=== PATIENT | female | born 1985 | race Caucasian/White ===

== ENCOUNTER 2017-06-19 21:37 | Inpatient (IN) | payer OTHER ==
[~2017-06-19] VITALS: Ht 160 cm; Wt 67.1 kg
[2017-06-19 22:25] LABS: UA SPECIFIC GRAVITY 1.015 (1.005-1.035); microscopic required? YES; urine erythrocyte 1+ (NEGATIVE)
[2017-06-19 22:26] LABS: BASOPHIL % 0.3 % (0-2)
[2017-06-19 22:28] LABS: PLATELET COUNT 419 x10^3mcL (130-400); RED CELL DISTRIBUTION WIDTH 15.1 % (11.5-14.5)
[2017-06-19 22:32] LABS: CARBON DIOXIDE 20.8 mmol/L (21-32); CHLORIDE SERUM 108 mmol/L (98-107); CREATININE SERUM 0.8 mg/dL (0.6-1.0); GFR1 > 60 mL/min; GLUCOSE SERUM 115 mg/dL (74-106); POTASSIUM SERUM 3.4 mmol/L (3.5-5.1); SODIUM SERUM 143 mmol/L (136-145)
[2017-06-19 22:37] LABS: ALKALINE PHOSPHATASE 162 U/L (46-116); ALT/SGPT 53 U/L (14-59); AST/SGOT 32 U/L (15-37); BILIRUBIN TOTAL 0.56 mg/dL (0.20-1.00); TOTAL PROTEIN, SERUM 8.2 g/dL (6.4-8.2)
[2017-06-20 02:48] LABS: PHOSPHOROUS 2.6 mg/dL (2.5-4.9)
[2017-06-20 02:52] LABS: T3 TOTAL 1.26 ng/mL
[2017-06-20 03:00] LABS: FREE T4 1.13 ng/dL (0.76-1.46); FREE THYROXINE INDEX 4.1 ug/dL (1.4-4.5); T4(THYROXINE) 11.4 ug/dL (4.7-13.3)
[2017-06-20 03:15] VITALS: BP 106/78
[2017-06-20 04:08] LABS: CHOLESTEROL/HDL RATIO 4.8
[2017-06-20 05:36] VITALS: BP 119/74
[2017-06-20 08:43] LABS: BASOPHIL % 0.2 % (0-2); PLATELET COUNT 356 x10^3mcL (130-400)
[2017-06-20 09:20] LABS: CALCIUM 7.5 mg/dL (8.5-10.1); CARBON DIOXIDE 21.1 mmol/L (21-32); CHLORIDE SERUM 111 mmol/L (98-107); CREATININE SERUM 0.8 mg/dL (0.6-1.0); GFR1 > 60 mL/min; GLUCOSE SERUM 110 mg/dL (74-106); MAGNESIUM 1.7 mg/dL (1.8-2.4); PHOSPHOROUS 2.9 mg/dL (2.5-4.9); POTASSIUM SERUM 4.5 mmol/L (3.5-5.1); SODIUM SERUM 137 mmol/L (136-145)
[2017-06-20 09:21] LABS: RED CELL DISTRIBUTION WIDTH 15.2 % (11.5-14.5)
[2017-06-20 10:23] VITALS: BP 139/81
[2017-06-20 17:50] VITALS: BP 119/72
[2017-06-20 22:03] VITALS: BP 104/69
[2017-06-20 22:09] VITALS: BP 117/62
[2017-06-21 05:44] VITALS: BP 104/64
[2017-06-21 06:15] LABS: CALCIUM 7.9 mg/dL (8.5-10.1); CARBON DIOXIDE 22.9 mmol/L (21-32); CHLORIDE SERUM 112 mmol/L (98-107); CREATININE SERUM 0.6 mg/dL (0.6-1.0); GFR1 > 60 mL/min; GLUCOSE SERUM 100 mg/dL (74-106); PHOSPHOROUS 2.9 mg/dL (2.5-4.9); POTASSIUM SERUM 3.6 mmol/L (3.5-5.1); SODIUM SERUM 143 mmol/L (136-145)
[2017-06-21 06:36] LABS: BASOPHIL % 0.4 % (0-2); PLATELET COUNT 309 x10^3mcL (130-400)
[2017-06-21 06:38] LABS: RED CELL DISTRIBUTION WIDTH 15.7 % (11.5-14.5)
[2017-06-21 10:01] VITALS: BP 99/59
[2017-06-21 13:20] VITALS: BP 114/71
[2017-06-21 21:29] VITALS: BP 122/80
[2017-06-22 05:37] VITALS: BP 120/71
[2017-06-22] MEDS ORDERED: TYL325 PO (10:29)
[2017-06-22] MEDS ORDERED: FLO4 PO (10:29)
[2017-06-22] MEDS ORDERED: LAC PO (10:43)
[2017-06-22] MEDS ORDERED: LEVAQUIN750 MG PO (10:43)
[2017-06-22 10:48] VITALS: BP 121/84
[2017-06-22 11:21] VITALS: BP 121/84
[2017-06-22 15:07] VITALS: BP 153/93
== END 2017-06-22 15:53 | disposition home or self-care (01) | DRG 443 ==
LOC: ED 21:37 → DU 06-20 01:30
PROVIDERS: Emergency Medicine; Family Medicine; Radiology Diagnostic Radiology; ADMIT Family Medicine
PROC: 0T133JD Bypass Right Kidney Pelvis to Cutaneous with Synthetic Substitute, Percutaneous Approach (ICD-10-PCS; principal; 2017-06-20 13:00)
DX: N13.2 Hydronephrosis with renal and ureteral calculous obstruction (principal); N17.0 Acute kidney failure with tubular necrosis; K80.20 Calculus of gallbladder without cholecystitis without obstruction; E83.51 Hypocalcemia; E78.5 Hyperlipidemia, unspecified; N15.9 Renal tubulo-interstitial disease, unspecified; N12 Tubulo-interstitial nephritis, not specified as acute or chronic
CPT/HCPCS: 83880; 84439; C1729; C1769; C1884; J0696; J1170; J1885; J2001; J2250; J2270; J2405; J3010; J7030; J7040; Q0092; Q9967

== ENCOUNTER 2017-08-29 17:57 | Emergency (ER) | payer OTHER ==
[~2017-08-29] VITALS: Ht 160 cm; Wt 62.4 kg
[~2017-08-29 17:57] MED LIST: FLO4 PO; LAC PO; LEVAQUIN750 MG PO; TYL325 PO
[2017-08-29 20:35] LABS: BASOPHIL % 0.3 % (0-2); PLATELET COUNT 388 x10^3mcL (130-400); RED CELL DISTRIBUTION WIDTH 14.1 % (11.5-14.5)
[2017-08-29 20:41] LABS: UA SPECIFIC GRAVITY 1.025 (1.005-1.035); microscopic required? YES; urine erythrocyte 1+ (NEGATIVE)
[2017-08-29 20:46] LABS: CALCIUM 9.2 mg/dL (8.5-10.1); CARBON DIOXIDE 26.7 mmol/L (21-32); CHLORIDE SERUM 102 mmol/L (98-107); CREATININE SERUM 0.6 mg/dL (0.6-1.0); GFR1 > 60 mL/min; GLUCOSE SERUM 96 mg/dL (74-106); POTASSIUM SERUM 3.7 mmol/L (3.5-5.1); SODIUM SERUM 140 mmol/L (136-145)
[2017-08-29 20:50] LABS: ALBUMIN 4.5 g/dL (3.4-5.0); ALKALINE PHOSPHATASE 159 U/L (46-116); ALT/SGPT 55 U/L (14-59); AST/SGOT 24 U/L (15-37); BILIRUBIN TOTAL 0.5 mg/dL (0.20-1.00); LIPASE 243 IU/L (73-393)
[2017-08-29 20:52] LABS: TOTAL PROTEIN, SERUM 9.2 g/dL (6.4-8.2)
[2017-08-29 23:33] VITALS: BP 138/70
== END 2017-08-29 23:33 | disposition home or self-care (01) ==
LOC: ED 17:57
PROVIDERS: Emergency Medicine
DX: T83.022A Displacement of nephrostomy catheter, initial encounter (principal); N39.0 Urinary tract infection, site not specified
CPT/HCPCS: J0696; J2405; J7030

== ENCOUNTER 2017-12-01 10:38 | Emergency (ER) | payer OTHER ==
[~2017-12-01] VITALS: Ht 160 cm; Wt 62.6 kg
[2017-12-01 10:48] VITALS: Ht 160 cm; Wt 62.6 kg
[2017-12-01 11:58] LABS: RED CELL DISTRIBUTION WIDTH 12.9 % (11.5-14.5)
[2017-12-01 12:03] LABS: BASOPHIL % 2.3 % (0-2); PLATELET COUNT 428 x10^3mcL (130-400)
[2017-12-01 12:04] LABS: CALCIUM 8.4 mg/dL (8.5-10.1); CARBON DIOXIDE 24.5 mmol/L (21-32); CHLORIDE SERUM 105 mmol/L (98-107); CREATININE SERUM 0.6 mg/dL (0.6-1.0); GFR1 > 60 mL/min; GLUCOSE SERUM 88 mg/dL (74-106); POTASSIUM SERUM 3.9 mmol/L (3.5-5.1); SODIUM SERUM 140 mmol/L (136-145)
[2017-12-01 12:17] LABS: ALBUMIN 3.9 g/dL (3.4-5.0); ALKALINE PHOSPHATASE 146 U/L (46-116); ALT/SGPT 40 U/L (14-59); AST/SGOT 19 U/L (15-37); BILIRUBIN TOTAL 0.6 mg/dL (0.20-1.00); T4(THYROXINE) 7.9 ug/dL (4.7-13.3)
[2017-12-01 14:36] VITALS: BP 132/74
== END 2017-12-01 14:36 | disposition home or self-care (01) ==
LOC: ED 10:38
PROVIDERS: Emergency Medicine
DX: N93.8 Other specified abnormal uterine and vaginal bleeding (principal)
CPT/HCPCS: J7030